=== PATIENT | female | born 1955 | race Caucasian/White ===

== ENCOUNTER 2023-01-25 15:49 | Emergency (ER) | payer OTHER, SELFPAY ==
[2023-01-25] VITALS (7 sets, daily range): BP systolic 148–170; BP diastolic 67–78; PULSE 64–78; RESP 16; TEMP 36.6; O2SAT 97–100
--- NOTE | 2023-01-25 15:56 | DI.RAD.S_ITS ---
PROCEDURE: XR ELBOW RT MIN 3V INDICATIONS: pain and swelling after fall TECHNIQUE: 3 views of the elbow were acquired. COMPARISON: [facility], CT, CT FACIAL BONES WO [facility], 01/25/2023, 16:12. [facility], CT, CT HEAD/BRAIN WO CON, 01/25/2023, 16:12. FINDINGS: Study limited by nonstandard positioning Bones: There is a prominent displaced olecranon fracture seen, with intra-articular involvement. No additional fractures are detected. Age-appropriate bony degenerative changes are seen. Soft tissues: Soft tissue swelling and irregularity can be seen. A joint effusion is presumed, yet not well seen. IMPRESSION: Prominently displaced, comminuted olecranon fracture, with intra-articular involvement. Dictated by: Justin Rodriguez M.D. on 01/25/2023 at 15:43 Approved by: Justin Rodriguez M.D. on 01/25/2023 at 15:44
--- NOTE | 2023-01-25 15:56 | DI.CT.S_ITS ---
PROCEDURE: CT HEAD/BRAIN WO CON INDICATIONS: fall and hit head and possible LOC TECHNIQUE: Noncontrast 4.5 mm thick angled axial sections acquired from the foramen magnum to the vertex, with coronal and sagittal reformats. For radiation dose reduction, the following was used: automated exposure control, adjustment of mA and/or kV according to patient size. COMPARISON: [facility], CT, CT FACIAL BONES WO CON, 01/25/2023, 16:12. [facility], CR, XR ELBOW RT MIN 3V, 01/25/2023, 16:00. FINDINGS: Image quality: Mild streak artifact can be seen through the skull base. CSF spaces: Basal cisterns are patent. No extra-axial fluid collections. The ventricles are symmetric in size and shape. Brain: No intracranial bleeds or masses. There is cerebral volume loss for age, with resultant ventricular and sulcal prominence. There are periventricular and deep white matter chronic small vessel ischemic changes. There is intracranial internal carotid artery atherosclerosis. Skull and face: Calvarium and visualized facial bones appear intact, without suspicious lesions. Sinuses: Visualized sinuses and mastoids are clear. IMPRESSION: No acute intracranial hemorrhage is seen. No acute intracranial process is seen. Dictated by: Justin Rodriguez M.D. on 01/25/2023 at 15:28 Approved by: Justin Rodriguez M.D. on 01/25/2023 at 15:30
--- NOTE | 2023-01-25 15:56 | DI.CT.S_ITS ---
PROCEDURE: CT FACIAL BONES WO CON INDICATIONS: fall with R facial wounds and maxilla pain TECHNIQUE: Noncontrast 2.5 mm thick axial images acquired from the mandible through the frontal sinuses, with coronal and sagittal reformatting. For radiation dose reduction, the following was used: automated exposure control, adjustment of mA and/or kV according to patient size. COMPARISON: None. FINDINGS: Image quality: Excellent. Bones and teeth: In this patient with this given history, scrutiny is given to right maxilla and the right-side of the face. On these images, no displaced fractures are seen. Periapical lucency can be seen involving least 1 maxillary tooth, as visualized on series 5, image 42 and on series 3 image 46. Orbital gabriel are intact. Sinus gabriel show no fracture or deformity. Nasal bones and septum are intact. Visualized portions of the mandible demonstrate no fractures or subluxation. Zygomatic arches are intact. Pterygoid plates are intact. Visualized portions of the skull base and auditory canals are intact. Sinuses: Paranasal sinuses are aerated, without fluid levels, mucosal thickening, or mucoceles. Mastoid air cells are aerated. Soft tissues: Mild soft tissue swelling can be seen involving the right cheek. Vascular: Visualized vascular structures appear normal in the absence of contrast. Bony vascular foramina and canals are intact. IMPRESSION: No displaced fracture can be seen, including involving the right maxilla. Right cheek soft tissue swelling seen. Periapical lucency can be seen involving at least 1 right maxillary tooth. Please correlate with dental examination. Dictated by: Justin Rodriguez M.D. on 01/25/2023 at 15:56 Approved by: Justin Rodriguez M.D. on 01/25/2023 at 15:57
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
[2023-01-25] MEDS: HYDROCODONE/ACET 5/325 TABLET 1 TAB PO (16:40)
== END 2023-01-25 18:55 | disposition home or self-care (01) ==
PROVIDERS: Emergency Provider Emergency Medicine
DX: S52.021A Displaced fracture of olecranon process without intraarticular extension of right ulna, initial encounter for closed fracture (principal); M25.521 Pain in right elbow; S01.81XA Laceration without foreign body of other part of head, initial encounter; S09.93XA Unspecified injury of face, initial encounter; V19.9XXA Pedal cyclist (driver) (passenger) injured in unspecified traffic accident, initial encounter
CPT/HCPCS: 12011; 70450; 70486; 73080; 99284